=== PATIENT | female | born 1945 | race Caucasian/White ===

== ENCOUNTER 2022-03-19 06:46 | Inpatient (IN) | payer BC, MEDICAID ==
[~2022-03-19] VITALS: Ht 177.8 cm; Wt 79.4 kg
[2022-03-19] MEDS ORDERED: PANTOPRAZOLE SODIUM 40 MG/VIAL IV STA (10:06)
[2022-03-19 10:08] LABS: BASOPHILS % 0.5 % (0.0-2.0); LYMPHOCYTES % 8.8 % (20.0-50.0); MEAN CORPUSCULAR HEMOGLOBIN 30.4 pg (28.0-32.0); MEAN CORPUSCULAR VOLUME 94.2 fL (81.0-99.0); MEAN PLATELET VOLUME 7.7 fl (7.4-10.4); NEUTROPHILS % 86.7 % (40.0-76.0); PLATELET 321 x1000/uL (130-400); RED BLOOD CELL COUNT 1.65 mill/uL (4.2-5.4); RED CELL DISTRIBUTION WIDTH 14.3 % (11.6-14.6)
[2022-03-19 10:09] LABS: CHLORIDE 115 mEq/L (98-107)
[2022-03-19 10:15] LABS: HEMATOCRIT. 15.5 % (36.0-48.0)
[2022-03-19 10:19] LABS: INR 1.1; PROTHROMBIN TIME 11.3 sec (9.6-11.0)
[2022-03-19] MEDS ORDERED: SODIUM CHLORIDE 0.9% 1,000 ML IV ONE (11:45)
[2022-03-19 17:00] VITALS: BP 142/65
[2022-03-19 17:21] LABS: TOTAL IRON BINDING CAPACITY 259 ug/dL (250-450)
[2022-03-19 18:24] LABS: FOLIC ACID (FOLATE) SERUM 19.3 ng/mL (>5.38)
[2022-03-19 20:00] VITALS: BP 132/66
[2022-03-19 20:04] LABS: HEMOGLOBIN 5.9 g/dL (12.0-16.0)
[2022-03-19 20:05] LABS: HEMATOCRIT 17.4 % (36.0-48.0)
[2022-03-19] MEDS: PANTOPRAZOLE SODIUM 40 MG/VIAL IV SCH (20:37)
[2022-03-19 21:45] VITALS: BP 131/62
[2022-03-19 22:00] VITALS: BP 123/55
[2022-03-19 23:00] VITALS: BP 110/60
[2022-03-20] VITALS (15 sets, daily range): BP systolic 119–157; BP diastolic 55–67
[2022-03-20] MEDS: DEXT 5%/0.45% NACL 1000ML 1,000 ML IV SCH ×3 (06:58→20:34)
[2022-03-20] MEDS ORDERED: INFLUENZA VACCINE 05/PF 0.5 ML SYRINGE IM ONE (07:00)
[2022-03-20] MEDS ORDERED: PNEUMOCOCCAL 23-VAL P-SAC VAC 0.5 ML IM ONE (08:00)
[2022-03-20 08:11] LABS: BASOPHILS % 0.7 % (0.0-2.0); EOSINOPHILS % 0.5 % (0.0-5.0); HEMATOCRIT. 21.4 % (36.0-48.0); HEMOGLOBIN. 7.3 g/dL (12.0-16.0); LYMPHOCYTES % 20.7 % (20.0-50.0); MEAN CORPUSCULAR HEMOGLOBIN 31.6 pg (28.0-32.0); MEAN CORPUSCULAR VOLUME 92.5 fL (81.0-99.0); MEAN PLATELET VOLUME 7.8 fl (7.4-10.4); MONOCYTES % 9.9 % (2.0-8.0); NEUTROPHILS % 68.2 % (40.0-76.0); PLATELET 211 x1000/uL (130-400); RED BLOOD CELL COUNT 2.31 mill/uL (4.2-5.4); RED CELL DISTRIBUTION WIDTH 14.2 % (11.6-14.6)
[2022-03-20 08:21] LABS: INR 1.1; PROTHROMBIN TIME 11.3 sec (9.6-11.0)
[2022-03-20] MEDS: PANTOPRAZOLE SODIUM 40 MG/VIAL IV SCH ×2 (08:27→20:34)
[2022-03-20 12:58] LABS: HEMATOCRIT 21.1 % (36.0-48.0); HEMOGLOBIN 7.2 g/dL (12.0-16.0)
[2022-03-20] MEDS ORDERED: ACETAMINOPHEN 650MG/20.3ML UDC PO PRN (16:30)
[2022-03-21] VITALS (7 sets, daily range): BP systolic 123–144; BP diastolic 54–76
[2022-03-21 02:47] LABS: PROTHROMBIN TIME 11.1 sec (9.6-11.0)
[2022-03-21 02:56] LABS: BASOPHILS % 0.5 % (0.0-2.0); EOSINOPHILS % 4.4 % (0.0-5.0); HEMOGLOBIN. 8.3 g/dL (12.0-16.0); LYMPHOCYTES % 29.6 % (20.0-50.0); MEAN CORPUSCULAR HEMOGLOBIN 31.2 pg (28.0-32.0); MEAN CORPUSCULAR VOLUME 90.6 fL (81.0-99.0); MEAN PLATELET VOLUME 7.7 fl (7.4-10.4); MONOCYTES % 7.9 % (2.0-8.0); NEUTROPHILS % 57.6 % (40.0-76.0); PLATELET 222 x1000/uL (130-400); RED BLOOD CELL COUNT 2.65 mill/uL (4.2-5.4); RED CELL DISTRIBUTION WIDTH 16.3 % (11.6-14.6)
[2022-03-21] MEDS: PANTOPRAZOLE SODIUM 40 MG/VIAL IV SCH (09:00)
[2022-03-21] MEDS ORDERED: PROPOFOL 200MG/20ML VIAL IV ONE (11:07)
[2022-03-21] MEDS ORDERED: CEFAZOLIN 1000MG PREMIX 50 ML IV NR (11:30)
[2022-03-21] MEDS ORDERED: SUCR1TAB MT (14:35)
[2022-03-21] MEDS ORDERED: OMEP40CA20 MT (14:35)
== END 2022-03-21 17:20 | disposition home or self-care (01) | DRG 381 ==
LOC: ER 06:46 → EDBEDREQSVC 10:19 → EDBEDREQTM 10:19 → EDBEDREQ 10:19 → 7WST 12:26 → EDBEDREQTM 12:31 → EDBEDREQ 12:31 → ENRESERV 16:08
PROVIDERS: ADMIT Internal Medicine; ATTEND Internal Medicine
PROC: 30233N1 Transfusion of Nonautologous Red Blood Cells into Peripheral Vein, Percutaneous Approach (ICD-10-PCS; 2022-03-19)
PROC: 0DB78ZX Excision of Stomach, Pylorus, Via Natural or Artificial Opening Endoscopic, Diagnostic (ICD-10-PCS; principal; 2022-03-21)
PROC: 0DB58ZX Excision of Esophagus, Via Natural or Artificial Opening Endoscopic, Diagnostic (ICD-10-PCS; 2022-03-21)
DX: K22.11 Ulcer of esophagus with bleeding (principal); E44.0 Moderate protein-calorie malnutrition; I10 Essential (primary) hypertension; Z20.822 Contact with and (suspected) exposure to COVID-19; K29.70 Gastritis, unspecified, without bleeding; K44.9 Diaphragmatic hernia without obstruction or gangrene; D50.9 Iron deficiency anemia, unspecified; K21.9 Gastro-esophageal reflux disease without esophagitis; K22.2 Esophageal obstruction; Z87.19 Personal history of other diseases of the digestive system
CPT/HCPCS: 36415; 71045; 80048; 80053; 82607; 82728; 82746; 83540; 83550; 83605; 84145; 84484; 85014; 85018; 85025; 85044; 86850; 86900; 86920; 87426; 87804; 88304; 88305; 90686; 90732; 93005; 99291; A6261; C9113; J0690; J2704; J7030; P9016